=== PATIENT | female | born 1990 | race Two or more races ===

== ENCOUNTER 2016-05-13 12:42 | Emergency (ER) | payer MEDICAID, OTHER ==
[~2016-05-13] VITALS: Ht 162.6 cm; Wt 68.0 kg
[2016-05-13] MEDS ORDERED: CORTISPORIN EAR10 ML LEFT EAR (14:17)
[2016-05-13 14:20] VITALS: BP 112/75
--- NOTE | 2016-05-13 14:26 | Emergency Room Report ---
History of Present Illness General Chief Complaint: Earache Source: Patient Present Illness [facility] The patient is a 25-year-old female presenting with left ear pain which began 2 days prior. The pain is described as an 8/10 dull ache and is worse with touch. The patient admits to radiation of pain to the neck. The patient denies any discharge from the ear and denies fever, chills, nausea, vomiting, dizziness, changes in hearing Allergies: Coded Allergies: No Known Allergies (Unverified , 05/13/16) Patient History Past Medical History: see triage record Pertinent Family History: none Last Menstrual Period: 04/20/16 Now: No Reviewed Nursing Documentation: PMH: Agreed, PSxH: Agreed Nursing Documentation-PMH Past Medical History: No Stated History Review of Systems All Other Systems: negative except mentioned in HPI Physical Exam Vital Signs Date Time Temp Pulse Resp B/P Pulse Ox O2 Delivery O2 Flow Rate FiO2 05/13/16 12:52 98.4 98 14 112/75 96 Room Air Sp02 EP Interpretation: reviewed, normal General Appearance: no apparent distress, alert, GCS 15, non-toxic Head: normocephalic, atraumatic Eyes: bilateral eye PERRL, bilateral eye normal inspection ENT: hearing grossly normal, normal pharynx, no angioedema, normal voice, uvula midline, moist mucus membranes, other - L EAC: erythematous with white DC. TTP over tragus Neck: full range of motion, supple/symm/no masses Respiratory: chest non-tender, lungs clear, normal breath sounds, speaking full sentences Cardiovascular #1: regular rate, rhythm, no edema Cardiovascular #2: 2+ carotid (R), 2+ carotid (L), 2+ radial (R), 2+ radial (L) , 2+ dorsalis pedis (R), 2+ dorsalis pedis (L) Rectal: deferred Neurologic: alert, oriented x3, responsive, motor strength/tone normal, sensory intact, speech normal Psychiatric: judgement/insight normal, memory normal, mood/affect normal, no suicidal/homicidal ideation Reflexes: 3+ bicep (R), 3+ bicep (L), 3+ tricep (R), 3+ tricep (L), 3+ knee (R) , 3+ knee (L) Skin: normal color, no rash, warm/dry, well hydrated Lymphatic: other - posterior chain lympahd Medical Decision Making PA Attestation Dr. Guzman is my supervising physician. Patient management was discussed with my supervising physician Diagnostic Impression: Primary Impression: Otitis externa of left ear ER Course The patient is a 25-year-old female presenting with left ear pain which began 2 days prior. Differential diagnosis include but not limited to otitis externa, otitis media, mastoiditis, sinusitis, pharyngitis PE: Vitals WNL. Afebrile. HEENT: L EAC: erythematous with white DC. TTP over tragus. TM intact. No bulging. + posterior chain lymphad. Otherwise unremarkable. The patient will be discharged home with a prescription for Cortisporin. ER precautions are given Last Vital Signs Date Time Temp Pulse Resp B/P Pulse Ox O2 Delivery O2 Flow Rate FiO2 05/13/16 12:52 98.4 98 14 112/75 96 Room Air Status: improved Disposition: HOME, SELF-CARE Condition: Improved Scripts Neomycin/Polymyxin B Sulf/Hc* (CORTISPORIN EAR SOLUTION*) 10 Ml Solution 4 DROP LEFT EAR QID, #10 ML 0 Refills Prov: DORA VAZQUEZ 05/13/16 Patient Instructions: Otitis Externa, Earache DORA VAZQUEZ May 13, 2016 14:26
[2016-05-13 14:45] VITALS: BP 112/75
== END 2016-05-13 14:45 | disposition home or self-care (01) ==
LOC: EMR 13:21 → EDBD 13:21 → EMR 14:45
DX: H92.02 Otalgia, left ear (principal); H60.92 Unspecified otitis externa, left ear
CPT/HCPCS: 99282

== ENCOUNTER 2016-11-20 12:16 | Emergency (ER) | payer OTHER ==
[~2016-11-20] VITALS: Ht 160 cm; Wt 63.5 kg
[~2016-11-20 12:16] MED LIST: CORTISPORIN EAR10 ML LEFT EAR
[2016-11-20] MEDS ORDERED: Dicyclomine HCl 10mg/5ml oral soln ORAL ONE (13:00)
--- NOTE | 2016-11-20 13:03 | Emergency Room Report ---
History of Present Illness General Chief Complaint: Abdominal Pain Present Illness HPI 26 YO female presents to the ED.complaining of abdominal bloating, loose stools x1 week. Patient reports nausea and one episode of dry heating 3 days ago denies vomiting. She denies fevers, chills, recent travel, rashes. Patient denies night sweats or weight loss. Patient states that a history of stomach ulcer in the past. Patient reports her diet consists mainly of sushi, by seafoods and lots of caffeine she is a student. Patient denies blood in the stool or black tarry stools. She denies constipation or body aches/joint pains. She denies abdominal tenderness she reports 6/10 in severity discomfort that she describes as bloated. Pt. denies vaginal d/c, lesions, or pelvic pain. denies dyspareunia or hx of STD. Pt. reports mild frequency and dysuria of urination, denies hematuria. States she has been around her 5YO cousin who had stomach flu last week. Denies CP, Palpitations, LOC, AMS, dizziness, Changes in Vision, Sensation, paresthesias, or a sudden severe headache. Denies reports her period was last week. Allergies: Coded Allergies: No Known Allergies (Unverified , 05/13/16) Patient History Past Medical History: see triage record Past Surgical History: none Pertinent Family History: none Last Menstrual Period: 11/13/16 Now: No Immunizations: UTD Reviewed Nursing Documentation: PMH: Agreed, PSxH: Agreed Nursing Documentation-PMH Hx Asthma: Yes Review of Systems All Other Systems: negative except mentioned in HPI Physical Exam Vital Signs Date Time Temp Pulse Resp B/P Pulse Ox O2 Delivery O2 Flow Rate FiO2 11/20/16 12:22 98.2 79 18 124/79 94 Room Air Sp02 EP Interpretation: reviewed, normal General Appearance: no apparent distress, alert, GCS 15, non-toxic Head: normocephalic, atraumatic Eyes: bilateral eye PERRL, bilateral eye normal inspection ENT: hearing grossly normal, normal pharynx, no angioedema, normal voice Neck: full range of motion, supple/symm/no masses Respiratory: lungs clear, normal breath sounds, speaking full sentences Cardiovascular #1: regular rate, rhythm, no edema Gastrointestinal: normal bowel sounds, non tender, soft, no guarding, no rebound, other - Negative [place] signs, Negative MacBurney's sign, Negative Rosvigns Sign, Negative Psoas, No Peritoneal signs. Rectal: deferred Genitourinary: normal inspection, no CVA tenderness Musculoskeletal: back normal, gait/station normal, normal range of motion, non- tender Neurologic: alert, oriented x3, responsive, motor strength/tone normal, sensory intact, speech normal Psychiatric: judgement/insight normal, memory normal, mood/affect normal Skin: normal color, no rash, warm/dry, well hydrated Lymphatic: no adenopathy Medical Decision Making PA Attestation Dr. Guzman is my supervising Physician whom patient management has been discussed with. Diagnostic Impression: Primary Impression: Gastroenteritis ER Course 26 YO female presents to the ED.complaining of abdominal bloating, loose stools x1 week. Patient reports nausea and one episode of dry heating 3 days ago denies vomiting. She denies fevers, chills, recent travel, rashes. Patient denies night sweats or weight loss. Patient states that a history of stomach ulcer in the past. Patient reports her diet consists mainly of sushi, by seafoods and lots of caffeine she is a student. Patient denies blood in the stool or black tarry stools. She denies constipation or body aches/joint pains. She denies abdominal tenderness she reports 6/10 in severity discomfort that she describes as bloated. Pt. denies vaginal d/c, lesions, or pelvic pain. denies dyspareunia or hx of STD. Pt. reports mild frequency and dysuria of urination, denies hematuria. States she has been around her 5YO cousin who had stomach flu last week. Denies CP, Palpitations, LOC, AMS, dizziness, Changes in Vision, Sensation, paresthesias, or a sudden severe headache. Denies reports her period was last week. Ddx considered but are not limited to Diverticulitis, acute appendicitis, diarrhea, UC, PUD, GE, pancreatitis, gallstone Vital signs: are WNL, pt. is afebrile H&PE are most consistent with gastritis and enteritis. will r/o and UTI. due to lower abdominal bloating. abdominal exam is benign, no evidence to suggest acute abdominal process at this time. pt. is non-toxic in appearance, and NAD. No PE signs to suggest dehydration. ORDERS: - UA: noted to have RBC's, and occult blood, moderate epithelial cells, some contamination most likely. -Urine Hcg: Negative ED INTERVENTIONS: -Zantac -Zofran -Bentyl -Pyridium DISCHARGE: At this time pt. is stable for d/c to home. Will provide printed patient care instructions, and any necessary prescriptions. Care plan and follow up instructions have been discussed with the patient prior to discharge. Labs Test 11/20/16 12:57 Urine Color Pale yellow Urine Appearance Slightly cloudy Urine pH 6 (4.5-8.0) Urine Specific [place] 1.015 (1.005-1.035) Urine Protein Negative (NEGATIVE) Urine Glucose (UA) Negative (NEGATIVE) Urine Ketones 1+ (NEGATIVE) Urine Occult Blood 5+ (NEGATIVE) Urine Nitrite Negative (NEGATIVE) Urine Bilirubin Negative (NEGATIVE) Urine Urobilinogen Normal MG/DL (0.0-1.0) Urine Leukocyte Esterase Negative (NEGATIVE) Urine RBC 20-30 /HPF (0 - 2) Urine WBC 0-2 /HPF (0 - 2) Urine Squamous Epithelial Cells Moderate /LPF (NONE/OCC) Urine Bacteria Few /HPF (NONE) Urine HCG, Qualitative Negative Last Vital Signs Date Time Temp Pulse Resp B/P Pulse Ox O2 Delivery O2 Flow Rate FiO2 11/20/16 12:22 98.2 79 18 124/79 94 Room Air Disposition: HOME, SELF-CARE Condition: Stable Scripts Dicyclomine Hcl* (BENTYL*) 10 Mg Capsule 10 MG ORAL FOUR TIMES A DAY for 2 Days, #8 CAP Prov: Dori Lewis P.A. 11/20/16 Phenazopyridine Hcl* (PYRIDIUM*) 100 Mg Tablet 100 MG ORAL THREE TIMES A DAY for 3 Days, #9 TAB Prov: Dori Lewis P.A. 11/20/16 Ranitidine Hcl* (ZANTAC*) 150 Mg Tablet 150 MG ORAL TWICE A DAY, #28 TAB Prov: Dori Lewis P.A. 11/20/16 Ondansetron Odt* (ZOFRAN ODT*) 4 Mg Tab.rapdis 4 MG ORAL Q6H Y for Nausea & Vomiting, #12 TAB Prov: Dori Lewis.A. 11/20/16 Patient Instructions: Diarrhea, Adult, [id number], Food Choices to Help Relieve Diarrhea, Adult, Nausea, Adult, [id number] Additional Instructions: Take medications as directed. Follow up with a Primary Care Provider in 3-5 days, even if your symptoms have resolved. --Please review list of primary care clinics, if you do not already have a primary care provider Return sooner to ED if new symptoms occur, or current symptoms become worse. - Please note that this Emergency Department Report was dictated using [employer] partner technology software, occasionally this can lead to erroneous entry secondary to interpretation by the dictation equipment. Dori Lewis Nov 20, 2016 13:03
[2016-11-20 13:05] LABS: APPEARANCE,URINE SLIGHTLY CLOUDY; KETONES,URINE 1+ (NEGATIVE); LEUKOCYTE ESTERASE ,URINE NEGATIVE (NEGATIVE); NITRITE,URINE NEGATIVE (NEGATIVE); PH,URINE 6 (4.5-8.0); PROTEIN,URINE NEGATIVE (NEGATIVE); UROBILINOGEN,URINE NORMAL MG/DL (0.0-1.0)
[2016-11-20 13:13] LABS: BACTERIA,URINE FEW /HPF; RBC,URINE 20-30 /HPF (0 - 2); SQUAMOUS EPITHELIAL CELL,UR MODERATE /LPF (NONE/OCC); WBC,URINE 0-2 /HPF (0 - 2)
[2016-11-20] MEDS ORDERED: Phenazopyridine 200mg tab ORAL ONE (13:30)
[2016-11-20] MEDS ORDERED: PHENAZOPYRIDIN100 MG ORAL (13:33)
[2016-11-20] MEDS ORDERED: ZANTAC150 MG ORAL (13:33)
[2016-11-20] MEDS ORDERED: ZOFRAN ODT4 MG ORAL (13:33)
[2016-11-20] MEDS ORDERED: BENTYL10 MG ORAL (13:33)
[2016-11-20 13:51] VITALS: BP 118/77
== END 2016-11-20 13:53 | disposition home or self-care (01) ==
LOC: EMR 12:49
DX: K52.9 Noninfective gastroenteritis and colitis, unspecified (principal); J45.909 Unspecified asthma, uncomplicated
CPT/HCPCS: 81003; 81025; 99284

== ENCOUNTER 2016-11-29 14:59 | Emergency (ER) | payer OTHER ==
[~2016-11-29] VITALS: Ht 160 cm; Wt 63.5 kg
[~2016-11-29 14:59] MED LIST changes: +BENTYL10 MG ORAL; +PHENAZOPYRIDIN100 MG ORAL; +ZANTAC150 MG ORAL; +ZOFRAN ODT4 MG ORAL
[2016-11-29 15:29] VITALS: BP 127/80
[2016-11-29] MEDS ORDERED: Dicyclomine HCl 10mg/5ml oral soln ORAL ONE (15:45)
[2016-11-29] MEDS ORDERED: Lidocaine 2% Visc 15ml soln ORAL ONE (15:45)
[2016-11-29] MEDS ORDERED: Mylanta II UD 30ml ORAL ONE (15:45)
[2016-11-29 15:52] LABS: APPEARANCE,URINE CLEAR; KETONES,URINE NEGATIVE (NEGATIVE); LEUKOCYTE ESTERASE ,URINE 1+ (NEGATIVE); NITRITE,URINE NEGATIVE (NEGATIVE); PH,URINE 6.5 (4.5-8.0); PROTEIN,URINE NEGATIVE (NEGATIVE); UROBILINOGEN,URINE NORMAL MG/DL (0.0-1.0)
[2016-11-29 16:04] LABS: BACTERIA,URINE MODERATE /HPF; SQUAMOUS EPITHELIAL CELL,UR MODERATE /LPF (NONE/OCC)
[2016-11-29] MEDS ORDERED: OMEPRAZOLE20 M2 ORAL (16:16)
[2016-11-29 16:43] VITALS: BP 10/80
--- NOTE | 2016-11-29 20:53 | Emergency Room Report ---
History of Present Illness General Chief Complaint: Abdominal Pain Source: Patient Present Illness HPI The patient's 26-year-old female presenting for continued abdominal pain and diarrhea. She was seen in this emergency Department 9 days prior and diagnosed with gastroenteritis as well as gastritis. She was given a prescription for Pepcid which helped but pain has returned now that she ran out. It is described as a 6/10 burning sensation to the mid upper abdomen and radiates to the chest. Worse after eating. She states that she does feel nauseous but has not vomited recently. Episodes of diarrhea have been decreasing. She denies any other symptoms including melena, hematochezia, F, chills, dysuria Allergies: Coded Allergies: No Known Allergies (Unverified , 05/13/16) Patient History Past Medical History: see triage record Pertinent Family History: none Last Menstrual Period: 11/15/16 Now: No Reviewed Nursing Documentation: PMH: Agreed, PSxH: Agreed Nursing Documentation-PMH Past Medical History: No Stated History Hx Asthma: Yes Review of Systems All Other Systems: negative except mentioned in HPI Physical Exam Vital Signs Date Time Temp Pulse Resp B/P Pulse Ox O2 Delivery O2 Flow Rate FiO2 11/29/16 15:09 98.2 92 14 127/80 95 Room Air Sp02 EP Interpretation: reviewed, normal General Appearance: no apparent distress, alert, GCS 15, non-toxic Head: normocephalic, atraumatic Eyes: bilateral eye PERRL, bilateral eye normal inspection ENT: hearing grossly normal, normal pharynx, no angioedema, normal voice Respiratory: chest non-tender, lungs clear, normal breath sounds, speaking full sentences Gastrointestinal: normal bowel sounds, soft, no mass, no guarding, tenderness - epigastric Genitourinary: normal inspection, no CVA tenderness Musculoskeletal: back normal, gait/station normal, normal range of motion, non- tender Neurologic: alert, oriented x3, responsive, motor strength/tone normal, sensory intact, speech normal Psychiatric: judgement/insight normal, memory normal, mood/affect normal, no suicidal/homicidal ideation Reflexes: 3+ bicep (R), 3+ bicep (L), 3+ tricep (R), 3+ tricep (L), 3+ knee (R) , 3+ knee (L) Skin: normal color, no rash, warm/dry, well hydrated Lymphatic: no adenopathy Medical Decision Making PA Attestation Dr. Sanchez is my supervising physician. Patient management was discussed with my supervising physician Diagnostic Impression: Primary Impression: GERD (gastroesophageal reflux disease) Qualified Codes: K21.9 - Gastro-esophageal reflux disease without esophagitis Additional Impression: Gastroenteritis ER Course The patient's 26-year-old female presenting for continued abdominal pain and diarrhea Differential diagnoses considered but not limited to: Gastroenteritis, gastritis , GERD, pancreatitis, appendicitis PE: unremarkable except for TTP over epigastric region The patient is given a GI cocktail and is feeling better. She will follow BRAT diet and take in plenty of fluids and Pedialyte. She will be placed on omeprazole for one month and needs to FU with PMD. ER precautions given Laboratory Tests Test 11/29/16 15:40 Urine Color Pale yellow Urine Appearance Clear Urine pH 6.5 (4.5-8.0) Urine Specific [place] 1.015 (1.005-1.035) Urine Protein Negative (NEGATIVE) Urine Glucose (UA) Negative (NEGATIVE) Urine Ketones Negative (NEGATIVE) Urine Occult Blood 4+ (NEGATIVE) H Urine Nitrite Negative (NEGATIVE) Urine Bilirubin Negative (NEGATIVE) Urine Urobilinogen Normal MG/DL (0.0-1.0) Urine Leukocyte Esterase 1+ (NEGATIVE) H Urine RBC 10-15 /HPF (0 - 2) H Urine WBC 2-4 /HPF (0 - 2) Urine Squamous Epithelial Cells Moderate /LPF (NONE/OCC) H Urine Bacteria Moderate /HPF (NONE) H Urine HCG, Qualitative Negative Lab Results Impression Unremarkable Last Vital Signs Date Time Temp Pulse Resp B/P Pulse Ox O2 Delivery O2 Flow Rate FiO2 11/29/16 16:43 78 16 10/80 98 Room Air 11/29/16 15:29 98.2 Status: improved Disposition: HOME, SELF-CARE Condition: Improved Scripts Omeprazole (OMEPRAZOLE) 20 Mg Capsule. 20 MG ORAL DAILY, #30 CAP Prov: DORA VAZQUEZ 11/29/16 Patient Instructions: Food Choices for Gastroesophageal Reflux Disease, Adult, Food Choices to Help Relieve Diarrhea, Adult, Gastroesophageal Reflux Disease, Adult Additional Instructions: I discussed my findings with the patient. All questions and concerns have been answered. Treatment and medication compliance have been addressed. I advised the patient that they need to follow up with PMD in 3-5 days. Return to ED if symptoms worsen, new symptoms arise, or if needed for any reason. Patient verbalized understanding of discharge instructions. DORA VAZQUEZ Nov 29, 2016 20:53
== END 2016-11-29 16:46 | disposition home or self-care (01) ==
LOC: EMR 15:20
DX: K21.9 Gastro-esophageal reflux disease without esophagitis (principal); K52.9 Noninfective gastroenteritis and colitis, unspecified; J45.909 Unspecified asthma, uncomplicated
CPT/HCPCS: 81003; 81025; 87086; 99283